=== PATIENT | female | born 1990 | race African-American/Black ===

== ENCOUNTER 2022-10-01 14:02 | Emergency (ER) | payer OTHER ==
[~2022-10-01] VITALS: Ht 149.9 cm; Wt 60.9 kg
[2022-10-01] MEDS ORDERED: PYRI50TA41 PO (14:23)
[2022-10-01] MEDS ORDERED: ISON300T18 PO (14:23)
[2022-10-01] MEDS ORDERED: NAPR220C14 PO (14:23)
[2022-10-01 15:05] LABS: BASO # 0.1 10^3/uL (0.0-0.2); BASO % 1.1 % (0.0-1.0); EOS # 0.2 10^3/uL (0.0-0.5); EOS % 3.1 % (0.0-3.0); HEMATOCRIT 37.7 % (36.0-47.0); HEMOGLOBIN 12.7 g/dl (12.0-15.5); LYMPH # 3.2 10^3/uL (1.5-5.0); LYMPH % 48.9 % (24.0-44.0); MEAN CORPUSCULAR HGB CONC 33.7 g/dl (32.0-36.5); MEAN CORPUSCULAR VOLUME 83.2 fl (80.0-96.0); MONO # 0.4 10^3/uL (0.0-0.8); MONO % 5.4 % (2.0-8.0); NEUTROPHILS # 2.7 10^3/uL (1.5-8.5); NEUTROPHILS % 41.3 % (36.0-66.0); PLATELET COUNT, AUTOMATED 481 10^3/uL (150-450); RED BLOOD COUNT 4.53 10^6/uL (4.00-5.40); WHITE BLOOD COUNT 6.5 10^3/uL (4.0-10.0)
[2022-10-01 15:35] LABS: LIPASE 43 U/L (12-53)
[2022-10-01 15:40] LABS: HCG, SERUM QUALITATIVE NEGATIVE (NEGATIVE)
[2022-10-01 15:41] LABS: ALBUMIN 3.8 G/DL (3.2-5.2); ALKALINE PHOSPHATASE 69 U/L (46-116); ALT/SGPT 16 U/L (7.0-40); AST/SGOT 26 U/L (<34); BILIRUBIN,DIRECT 0.1 MG/DL (<0.4); BILIRUBIN,TOTAL 0.4 MG/DL (0.3-1.2); BLOOD UREA NITROGEN 7 MG/DL (9-23); CALCIUM LEVEL 9.2 MG/DL (8.5-10.1); CARBON DIOXIDE LEVEL 27 MMOL/L (20-31); CHLORIDE LEVEL 108 MMOL/L (98-107); CREATININE FOR GFR 0.86 MG/DL (0.55-1.30); GLOMERULAR FILTRATION RATE > 60.0 (>60); GLUCOSE, FASTING 75 MG/DL (60-100); POTASSIUM SERUM 4.4 MMOL/L (3.5-5.1); SODIUM LEVEL 138 MMOL/L (136-145); TOTAL PROTEIN 7.1 G/DL (5.7-8.2)
[2022-10-01] MEDS ORDERED: NS 1,000 ML IV ONE (17:00)
[2022-10-01] MEDS ORDERED: KETOROLAC 30 MG/ML 1ML VIAL IV ONE (17:05)
[2022-10-01] MEDS ORDERED: IBUP80TA PO (18:55)
[2022-10-01 19:00] VITALS: BP 120/67
== END 2022-10-01 19:08 | disposition home or self-care (01) ==
LOC: M ED 14:02
DX: R10.2 Pelvic and perineal pain (principal); N93.9 Abnormal uterine and vaginal bleeding, unspecified; D25.9 Leiomyoma of uterus, unspecified; Z79.1 Long term (current) use of non-steroidal anti-inflammatories (NSAID); Z79.899 Other long term (current) drug therapy
CPT/HCPCS: 74177; 76856; 80048; 80076; 81001; 83690; 84703; 85025; 93976; 96361; 96374; 99284; J1885

== ENCOUNTER 2022-12-31 06:23 | Inpatient (IN) | payer OTHER ==
[2022-12-31] VITALS (8 sets, daily range): BP systolic 108–130; BP diastolic 57–76; TEMP 97–99.2; O2SAT 97–100
[~2022-12-31] VITALS: Ht 149.9 cm; Wt 59.4 kg
[~2022-12-31 06:23] MED LIST: ACETAMINOPHEN *IV* 1,000 MG IV ONE; IBUP200C25 PO; IBUP80TA PO; ISON300T18 PO; LR 1,000 ML IV SCH; NAPR220C14 PO; PYRI50TA41 PO; ceFAZolin SOD 2 GM in IV 1 EA IV ONE
[2022-12-31 07:02] LABS: HEMATOCRIT 40.3 % (36.0-47.0); HEMOGLOBIN 13.7 g/dl (12.0-15.5); MEAN CORPUSCULAR HEMOGLOBIN 27.9 pg (27.0-33.0); MEAN CORPUSCULAR VOLUME 82.1 fl (80.0-96.0); PLATELET COUNT, AUTOMATED 459 10^3/uL (150-450); RED BLOOD COUNT 4.91 10^6/uL (4.00-5.40); WHITE BLOOD COUNT 5.8 10^3/uL (4.0-10.0)
[2022-12-31] MEDS ORDERED: ACETAMINOPHEN 1000MG 100ML IV BAG As Ordered ONE (07:11)
[2022-12-31] MEDS ORDERED: propofoL 200 MG/20 ML VIAL As Ordered ONE (07:12)
[2022-12-31] MEDS ORDERED: KETOROLAC 60MG 2ML VIAL As Ordered ONE (07:12)
[2022-12-31] MEDS ORDERED: ONDANSETRON 4MG 2ML VIAL As Ordered ONE (07:12)
[2022-12-31] MEDS ORDERED: LIDOCAINE 2% 100MG/5ML SDV (FOR ANES.) As Ordered ONE (07:12)
[2022-12-31] MEDS ORDERED: SUGAMMADEX SODIUM 500 MG/5 ML VIAL (BRIDION) As Ordered ONE (07:12)
[2022-12-31] MEDS ORDERED: ROCURONIUM BROMIDE 50MG/5ML VIAL As Ordered ONE ×3 (07:12→11:30)
[2022-12-31] MEDS ORDERED: MIDAZOLAM INJ 2MG/2ML VIAL As Ordered ONE (07:13)
[2022-12-31] MEDS ORDERED: fentaNYL 100 MCG/2 ML INJECTION As Ordered ONE (07:13)
[2022-12-31] MEDS ORDERED: VASOPRESSIN INJ 20UNITS/ML 1ML VIAL As Ordered ONE (07:30)
[2022-12-31] MEDS ORDERED: HYDROmorphone HCL 2MG/ML 1ML VIAL As Ordered ONE (07:57)
[2022-12-31] MEDS: DOCUSATE SODIUM 100MG CAPSULE PO SCH ×2 (09:00→21:12)
[2022-12-31] MEDS ORDERED: fentaNYL 100 MCG/2 ML INJECTION IV PRN (10:55)
[2022-12-31] MEDS ORDERED: oxyCODONE 5MG TAB PO PRN ×2 (10:55→11:05)
[2022-12-31] MEDS ORDERED: ONDANSETRON 4MG 2ML VIAL IV PRN ×2 (10:55→11:05)
[2022-12-31] MEDS ORDERED: LR 1,000 ML IV SCH (11:05)
[2022-12-31] MEDS ORDERED: PROMETHAZINE 25MG/ML 1ML VIAL IV PRN (11:05)
[2022-12-31] MEDS: HYDROMORPHONE HCL 0.5 MG/ 0.5 ML SYRINGE IV PRN ×2 (11:31→11:37)
[2022-12-31] MEDS: ACETAMINOPHEN 500 MG TAB PO SCH ×2 (14:00→19:24)
[2022-12-31] MEDS: KETOROLAC 30 MG/ML 1ML VIAL IV SCH ×2 (15:20→21:13)
[2022-12-31] MEDS ORDERED: HOME MED LIST COMPLETE! XX SCH (15:50)
[2022-12-31] MEDS ORDERED: SCOPOLAMINE 1MG TRANSDERMAL PATCH TOP PRN (16:00)
[2022-12-31] MEDS: oxyCODONE 5MG TAB PO PRN (19:25)
[2023-01-01] VITALS: BP 107/61; TEMP 98.6; O2SAT 99
[2023-01-01] MEDS: SIMETHICONE 80MG CHEW TAB PO PRN ×2 (00:43→10:30)
[2023-01-01] MEDS: ACETAMINOPHEN 500 MG TAB PO SCH ×2 (02:17→07:50)
[2023-01-01] MEDS: KETOROLAC 30 MG/ML 1ML VIAL IV SCH (03:10)
[2023-01-01 04:00] VITALS: BP 117/66; TEMP 99.8; O2SAT 100
[2023-01-01 06:33] LABS: BASO # 0.1 10^3/uL (0.0-0.2); BASO % 0.5 % (0.0-1.0); EOS # 0.1 10^3/uL (0.0-0.5); HEMATOCRIT 27.7 % (36.0-47.0); HEMOGLOBIN 9.4 g/dl (12.0-15.5); LYMPH # 2.9 10^3/uL (1.5-5.0); LYMPH % 26.8 % (24.0-44.0); MEAN CORPUSCULAR HEMOGLOBIN 28.1 pg (27.0-33.0); MEAN CORPUSCULAR HGB CONC 33.9 g/dl (32.0-36.5); MEAN CORPUSCULAR VOLUME 82.7 fl (80.0-96.0); MONO # 0.7 10^3/uL (0.0-0.8); MONO % 6.8 % (2.0-8.0); NEUTROPHILS % 64.7 % (36.0-66.0); RED BLOOD COUNT 3.35 10^6/uL (4.00-5.40); WHITE BLOOD COUNT 10.8 10^3/uL (4.0-10.0)
[2023-01-01 06:37] LABS: PLATELET COUNT, AUTOMATED 324 10^3/uL (150-450)
[2023-01-01 07:39] VITALS: BP 99/56; TEMP 98.6; O2SAT 98
[2023-01-01] MEDS: DOCUSATE SODIUM 100MG CAPSULE PO SCH (07:50)
[2023-01-01] MEDS: oxyCODONE 5MG TAB PO PRN (07:58)
[2023-01-01] MEDS ORDERED: ACET1TAB55 PO (10:50)
[2023-01-01] MEDS ORDERED: SIME80TA16 PO (10:50)
[2023-01-01] MEDS ORDERED: OXYC-517 PO (10:50)
[2023-01-01] MEDS ORDERED: IBUP80TA PO (10:50)
[2023-01-01] MEDS ORDERED: MIRA3350 PO (10:50)
[2023-01-01] MEDS ORDERED: IBUPROFEN 800 MG TAB PO SCH (11:00)
[2023-01-01 11:45] VITALS: BP 104/56; TEMP 98; O2SAT 100
== END 2023-01-01 12:35 | disposition home or self-care (01) | DRG 743 ==
LOC: M OR 06:23 → EDSTATUS 07:30 → M PED 12:15
PROVIDERS: ADMIT Obstetrics & Gynecology; ATTEND Obstetrics & Gynecology
PROC: 0UB90ZZ Excision of Uterus, Open Approach (ICD-10-PCS; principal; 2022-12-31 07:30)
DX: D25.9 Leiomyoma of uterus, unspecified (principal)

== ENCOUNTER 2023-02-10 12:09 | Emergency (ER) | payer OTHER ==
[~2023-02-10] VITALS: Ht 149.9 cm; Wt 59.5 kg
[~2023-02-10 12:09] MED LIST changes: +ACET1TAB55 PO; -ACETAMINOPHEN *IV* 1,000 MG IV ONE; -LR 1,000 ML IV SCH; +MIRA3350 PO; +OXYC-517 PO; +SIME80TA16 PO; -ceFAZolin SOD 2 GM in IV 1 EA IV ONE
[2023-02-10 14:31] LABS: BASO # 0.1 10^3/uL (0.0-0.2); EOS # 0.1 10^3/uL (0.0-0.5); EOS % 1.8 % (0.0-3.0); HEMATOCRIT 37.3 % (36.0-47.0); HEMOGLOBIN 12.7 g/dl (12.0-15.5); LYMPH # 3.4 10^3/uL (1.5-5.0); LYMPH % 48.1 % (24.0-44.0); MEAN CORPUSCULAR VOLUME 82.3 fl (80.0-96.0); MONO # 0.4 10^3/uL (0.0-0.8); MONO % 5.4 % (2.0-8.0); NEUTROPHILS # 3.1 10^3/uL (1.5-8.5); NEUTROPHILS % 43.6 % (36.0-66.0); PLATELET COUNT, AUTOMATED 490 10^3/uL (150-450); RED BLOOD COUNT 4.53 10^6/uL (4.00-5.40)
[2023-02-10 15:01] LABS: LIPASE 56 U/L (12-53)
[2023-02-10 15:16] LABS: ALKALINE PHOSPHATASE 63 U/L (46-116); ALT/SGPT < 9 U/L (7.0-40); AST/SGOT 21 U/L (<34); BILIRUBIN,DIRECT 0.1 MG/DL (<0.4); BILIRUBIN,TOTAL 0.5 MG/DL (0.3-1.2); BLOOD UREA NITROGEN 6 MG/DL (9-23); CALCIUM LEVEL 8.8 MG/DL (8.5-10.1); CARBON DIOXIDE LEVEL 23 MMOL/L (20-31); CHLORIDE LEVEL 106 MMOL/L (98-107); GLOMERULAR FILTRATION RATE > 60.0 (>60); GLUCOSE, FASTING 82 MG/DL (60-100); POTASSIUM SERUM 5.1 MMOL/L (3.5-5.1); SODIUM LEVEL 139 MMOL/L (136-145); TOTAL PROTEIN 7.7 G/DL (5.7-8.2)
[2023-02-10 15:20] LABS: HCG, SERUM QUALITATIVE NEGATIVE (NEGATIVE)
[2023-02-10] MEDS ORDERED: NS 1,000 ML IV ONE (15:40)
[2023-02-10] MEDS ORDERED: KETOROLAC 30 MG/ML 1ML VIAL IV ONE (15:40)
[2023-02-10] MEDS ORDERED: ONDANSETRON 4MG 2ML VIAL IV ONE (15:40)
[2023-02-10] MEDS ORDERED: ISOVUE-370 76% 100ML VIAL As Ordered ONE (15:45)
[2023-02-10 17:15] VITALS: BP 127/79; TEMP 99.1; O2SAT 100
== END 2023-02-10 17:16 | disposition home or self-care (01) ==
LOC: M ED 12:09
DX: N83.11 Corpus luteum cyst of right ovary (principal); J91.8 Pleural effusion in other conditions classified elsewhere; Z79.1 Long term (current) use of non-steroidal anti-inflammatories (NSAID); Z79.899 Other long term (current) drug therapy
CPT/HCPCS: 74177; 80047; 80053; 81001; 82248; 83605; 83690; 84703; 85025; 87040; 96374; 96375; 99284; J1885; J2405; Q9967

== ENCOUNTER 2023-05-17 22:02 | Emergency (ER) | payer OTHER ==
[~2023-05-17] VITALS: Ht 149.9 cm; Wt 59.0 kg
[~2023-05-17 22:02] MED LIST changes: +ONDA4TAB6 PO
[2023-05-17] MEDS ORDERED: NS 1,000 ML IV ONE (23:05)
[2023-05-17] MEDS ORDERED: KETOROLAC 30 MG/ML 1ML VIAL IM ONE (23:05)
[2023-05-17] MEDS ORDERED: METOCLOPRAMIDE INJ 10MG/2ML VIAL IV ONE (23:05)
[2023-05-18] MEDS ORDERED: ISOVUE-370 76% 100ML VIAL As Ordered ONE (00:30)
[2023-05-18 01:55] VITALS: BP 118/88; TEMP 98.8; O2SAT 100
== END 2023-05-18 01:58 | disposition home or self-care (01) ==
LOC: M ED 22:02 → EDBD 22:02 → M ED 05-18 01:58
DX: R51.9 Headache, unspecified (principal); Q28.2 Arteriovenous malformation of cerebral vessels; V49.40XA Driver injured in collision with unspecified motor vehicles in traffic accident, initial encounter; Y92.410 Unspecified street and highway as the place of occurrence of the external cause; Y93.9 Activity, unspecified; Y99.9 Unspecified external cause status; Z79.83 Long term (current) use of bisphosphonates
CPT/HCPCS: 70450; 70496; 70498; 72125; 80047; 84702; 96361; 96372; 96374; 99284; J1885; J2765; Q9967

== ENCOUNTER 2023-12-21 12:57 | Emergency (ER) | payer OTHER ==
[~2023-12-21] VITALS: Ht 149.9 cm; Wt 59.1 kg
[~2023-12-21 12:57] MED LIST changes: +FERR1TAB8 PO; +ONDA-282 PO; -ONDA4TAB6 PO; +VITA500T4 PO
[2023-12-21] MEDS: ACETAMINOPHEN *IV* 1,000 MG in IV 1 EA IV ONE (14:23)
[2023-12-21] MEDS: NS 1,000 ML IV ONE (14:23)
[2023-12-21 14:43] LABS: BASO # 0.1 10^3/uL (0.0-0.2); BASO % 0.9 % (0.0-1.0); EOS # 0.1 10^3/uL (0.0-0.5); EOS % 1.4 % (0.0-3.0); LYMPH # 2.9 10^3/uL (1.5-5.0); MEAN CORPUSCULAR HEMOGLOBIN 27.8 pg (27.0-33.0); MEAN CORPUSCULAR HGB CONC 34.3 g/dl (32.0-36.5); MONO # 0.3 10^3/uL (0.0-0.8); MONO % 4.5 % (2.0-8.0); NEUTROPHILS # 2.4 10^3/uL (1.5-8.5); PLATELET COUNT, AUTOMATED 425 10^3/uL (150-450); RED BLOOD COUNT 4.32 10^6/uL (4.00-5.40); WHITE BLOOD COUNT 5.6 10^3/uL (4.0-10.0)
[2023-12-21 14:52] LABS: ERYTHROCYTE SEDIMENTATION RATE 6 mm/hr (0-20)
[2023-12-21 15:06] LABS: C REACTIVE PROTEIN QUANTITATIV < 0.40 MG/DL (<1.0)
[2023-12-21 15:08] LABS: BLOOD UREA NITROGEN 10 MG/DL (9-23); CALCIUM LEVEL 8.9 MG/DL (8.5-10.1); CARBON DIOXIDE LEVEL 26 MMOL/L (20-31); CHLORIDE LEVEL 111 MMOL/L (98-107); CREATININE FOR GFR 0.77 MG/DL (0.55-1.30); GLOMERULAR FILTRATION RATE > 60.0 (>60); GLUCOSE, FASTING 89 MG/DL (60-100); MAGNESIUM LEVEL 1.9 MG/DL (1.8-2.4); POTASSIUM SERUM 4.3 MMOL/L (3.5-5.1); SODIUM LEVEL 142 MMOL/L (136-145)
[2023-12-21] MEDS: KETOROLAC 30 MG/ML 1ML VIAL IV ONE (15:16)
[2023-12-21 15:38] LABS: RSV AMPLIFICATION NEGATIVE (NEGATIVE)
[2023-12-21 16:08] VITALS: BP 115/70; TEMP 99.7; O2SAT 100
== END 2023-12-21 16:46 | disposition home or self-care (01) ==
LOC: M ED 12:57
DX: R51.9 Headache, unspecified (principal); Q28.2 Arteriovenous malformation of cerebral vessels; D47.3 Essential (hemorrhagic) thrombocythemia
CPT/HCPCS: 70450; 80048; 83605; 83735; 85025; 85652; 86140; 87040; 87631; 96374; 96375; 99284; J0131; J1885

== ENCOUNTER 2024-03-25 19:08 | Emergency (ER) | payer OTHER ==
[~2024-03-25] VITALS: Ht 152.4 cm; Wt 62.5 kg
[~2024-03-25 19:08] MED LIST changes: +B-2100TA; +MAGN400T33; +RIZA10TA58
[2024-03-25 19:09] VITALS: TEMP 97.1
[2024-03-25 20:29] LABS: BASO # 0.1 10^3/uL (0.0-0.2); BASO % 0.5 % (0.0-1.0); EOS # 0.1 10^3/uL (0.0-0.5); EOS % 0.7 % (0.0-3.0); HEMATOCRIT 36.8 % (36.0-47.0); HEMOGLOBIN 12.7 g/dl (12.0-15.5); LYMPH # 2.6 10^3/uL (1.5-5.0); LYMPH % 22.2 % (24.0-44.0); MEAN CORPUSCULAR HGB CONC 34.5 g/dl (32.0-36.5); MEAN CORPUSCULAR VOLUME 81.1 fl (80.0-96.0); MONO # 0.6 10^3/uL (0.0-0.8); MONO % 5.3 % (2.0-8.0); NEUTROPHILS # 8.5 10^3/uL (1.5-8.5); PLATELET COUNT, AUTOMATED 469 10^3/uL (150-450); RED BLOOD COUNT 4.54 10^6/uL (4.00-5.40); WHITE BLOOD COUNT 11.9 10^3/uL (4.0-10.0)
[2024-03-25 20:55] LABS: ALBUMIN 3.7 G/DL (3.2-5.2); ALKALINE PHOSPHATASE 67 U/L (46-116); ALT/SGPT 16 U/L (7.0-40); AST/SGOT 19 U/L (<34); BILIRUBIN,TOTAL 0.3 MG/DL (0.3-1.2); BLOOD UREA NITROGEN 10 MG/DL (9-23); CALCIUM LEVEL 9.5 MG/DL (8.5-10.1); CARBON DIOXIDE LEVEL 24 MMOL/L (20-31); CHLORIDE LEVEL 112 MMOL/L (98-107); CREATININE FOR GFR 0.81 MG/DL (0.55-1.30); GLOMERULAR FILTRATION RATE > 60.0 (>60); GLUCOSE, FASTING 109 MG/DL (60-100); POTASSIUM SERUM 4.2 MMOL/L (3.5-5.1); SODIUM LEVEL 141 MMOL/L (136-145); TOTAL PROTEIN 7.4 G/DL (5.7-8.2)
[2024-03-25 22:21] LABS: HCG, SERUM QUALITATIVE NEGATIVE (NEGATIVE)
[2024-03-25] MEDS ORDERED: ISOVUE-370 76% 100ML VIAL As Ordered ONE (22:28)
[2024-03-25] MEDS: KETOROLAC 30 MG/ML 1ML VIAL IV ONE (22:33)
[2024-03-26] MEDS ORDERED: MIRA3350 PO (01:03)
[2024-03-26] MEDS ORDERED: ANUS2.5C2 TOP (01:32)
[2024-03-26 01:45] VITALS: BP 125/63; O2SAT 99
== END 2024-03-26 01:48 | disposition home or self-care (01) ==
LOC: M ED 19:08
DX: R10.9 Unspecified abdominal pain (principal); K59.00 Constipation, unspecified; K64.9 Unspecified hemorrhoids; Z79.899 Other long term (current) drug therapy
CPT/HCPCS: 74018; 74177; 80053; 81001; 84703; 85025; 96374; 99283; J1885; Q9967

== ENCOUNTER 2024-09-02 05:58 | Emergency (ER) | payer OTHER ==
[~2024-09-02] VITALS: Ht 152.4 cm; Wt 64.7 kg
[~2024-09-02 05:58] MED LIST changes: +ANUS2.5C2 TOP; +ISON1TAB5 PO; -ISON300T18 PO
[2024-09-02 08:51] LABS: BASO # 0.1 10^3/uL (0.0-0.2); BASO % 1.2 % (0.0-1.0); EOS # 0.1 10^3/uL (0.0-0.5); EOS % 1.6 % (0.0-3.0); HEMATOCRIT 37.1 % (36.0-47.0); HEMOGLOBIN 12.9 g/dl (12.0-15.5); LYMPH # 2.2 10^3/uL (1.5-5.0); LYMPH % 43.7 % (24.0-44.0); MEAN CORPUSCULAR HEMOGLOBIN 27.4 pg (27.0-33.0); MEAN CORPUSCULAR HGB CONC 34.8 g/dl (32.0-36.5); MEAN CORPUSCULAR VOLUME 78.8 fl (80.0-96.0); MONO # 0.3 10^3/uL (0.0-0.8); MONO % 6.2 % (2.0-8.0); NEUTROPHILS # 2.4 10^3/uL (1.5-8.5); NEUTROPHILS % 47.1 % (36.0-66.0); PLATELET COUNT, AUTOMATED 460 10^3/uL (150-450); RED BLOOD COUNT 4.71 10^6/uL (4.00-5.40)
[2024-09-02 09:00] LABS: ERYTHROCYTE SEDIMENTATION RATE 11 mm/hr (0-20)
[2024-09-02 09:16] LABS: LIPASE 30 U/L (12-53)
[2024-09-02 09:18] LABS: ALBUMIN 3.7 G/DL (3.2-5.2); ALKALINE PHOSPHATASE 61 U/L (35-104); ALT/SGPT 11 U/L (7.0-40); AST/SGOT 16 U/L (<34); BILIRUBIN,DIRECT 0.1 MG/DL (<0.4); BILIRUBIN,TOTAL 0.6 MG/DL (0.3-1.2); C REACTIVE PROTEIN QUANTITATIV < 0.50 MG/DL (<1.0); TOTAL PROTEIN 7.4 G/DL (5.7-8.2)
[2024-09-02 11:20] VITALS: BP 116/77; TEMP 96.6; O2SAT 100
== END 2024-09-02 11:25 | disposition home or self-care (01) ==
LOC: M ED 05:58
DX: R51.9 Headache, unspecified (principal); Q28.2 Arteriovenous malformation of cerebral vessels; E78.5 Hyperlipidemia, unspecified; Z22.7 Latent tuberculosis; R10.9 Unspecified abdominal pain; Z79.899 Other long term (current) drug therapy

== ENCOUNTER 2024-10-19 16:54 | Emergency (ER) | payer OTHER ==
[~2024-10-19] VITALS: Ht 152.4 cm; Wt 64.5 kg
[2024-10-19 20:13] LABS: BASO # 0.1 10^3/uL (0.0-0.2); BASO % 0.8 % (0.0-1.0); EOS # 0.2 10^3/uL (0.0-0.5); HEMOGLOBIN 12.8 g/dl (12.0-15.5); LYMPH # 3.2 10^3/uL (1.5-5.0); LYMPH % 49.9 % (24.0-44.0); MEAN CORPUSCULAR HEMOGLOBIN 27.1 pg (27.0-33.0); MEAN CORPUSCULAR HGB CONC 33.7 g/dl (32.0-36.5); MEAN CORPUSCULAR VOLUME 80.3 fl (80.0-96.0); MONO # 0.3 10^3/uL (0.0-0.8); MONO % 5.1 % (2.0-8.0); NEUTROPHILS # 2.6 10^3/uL (1.5-8.5); NEUTROPHILS % 40.9 % (36.0-66.0); PLATELET COUNT, AUTOMATED 541 10^3/uL (150-450); RED BLOOD COUNT 4.73 10^6/uL (4.00-5.40); WHITE BLOOD COUNT 6.4 10^3/uL (4.0-10.0)
[2024-10-19 20:27] LABS: LIPASE 45 U/L (12-53)
[2024-10-19 20:28] LABS: HCG, SERUM QUALITATIVE NEGATIVE (NEGATIVE)
[2024-10-19 20:29] LABS: ALBUMIN 3.8 G/DL (3.2-5.2); ALKALINE PHOSPHATASE 78 U/L (35-104); ALT/SGPT 24 U/L (7.0-40); AST/SGOT 17 U/L (<34); BILIRUBIN,DIRECT 0.1 MG/DL (<0.4); BILIRUBIN,TOTAL 0.4 MG/DL (0.3-1.2); BLOOD UREA NITROGEN 8 MG/DL (9-23); CALCIUM LEVEL 9.3 MG/DL (8.5-10.1); CARBON DIOXIDE LEVEL 25 MMOL/L (20-31); CHLORIDE LEVEL 108 MMOL/L (98-107); GLOMERULAR FILTRATION RATE > 60.0 (>60); GLUCOSE, FASTING 95 MG/DL (60-100); POTASSIUM SERUM 4.3 MMOL/L (3.5-5.1); SODIUM LEVEL 139 MMOL/L (136-145); TOTAL PROTEIN 7.7 G/DL (5.7-8.2)
[2024-10-19] MEDS: KETOROLAC 30 MG/ML 1ML VIAL IV ONE (21:17)
[2024-10-19] MEDS: NS (Normal Saline) 0.9% 1,000 ML IV ONE (21:18)
[2024-10-19] MEDS ORDERED: AMOX500C PO (22:45)
[2024-10-19] MEDS: AMOXICILLIN 500 MG CAP PO ONE (22:54)
[2024-10-19 22:58] VITALS: BP 129/81; TEMP 96.2; O2SAT 100
== END 2024-10-19 22:59 | disposition home or self-care (01) ==
LOC: M ED 16:54
DX: J01.10 Acute frontal sinusitis, unspecified (principal); G43.909 Migraine, unspecified, not intractable, without status migrainosus; D57.3 Sickle-cell trait; Z79.2 Long term (current) use of antibiotics; Z79.899 Other long term (current) drug therapy
CPT/HCPCS: 71045; 80048; 80076; 83690; 84703; 85025; 87040; 87207; 87486; 87581; 87633; 87798; 96361; 96374; 99284; J1885

== ENCOUNTER 2024-11-12 03:02 | Emergency (ER) | payer OTHER ==
[~2024-11-12] VITALS: Ht 152.4 cm; Wt 63.5 kg
[~2024-11-12 03:02] MED LIST changes: +AMOX500C PO
[2024-11-12] MEDS ORDERED: IBUP-1022 PO (03:07)
[2024-11-12 03:32] LABS: BASO # 0.1 10^3/uL (0.0-0.2); EOS # 0.3 10^3/uL (0.0-0.5); EOS % 3.7 % (0.0-3.0); HEMOGLOBIN 12.7 g/dl (12.0-15.5); LYMPH # 3.6 10^3/uL (1.5-5.0); LYMPH % 51.7 % (24.0-44.0); MEAN CORPUSCULAR HEMOGLOBIN 27.3 pg (27.0-33.0); MEAN CORPUSCULAR HGB CONC 34.3 g/dl (32.0-36.5); MEAN CORPUSCULAR VOLUME 79.4 fl (80.0-96.0); MONO # 0.4 10^3/uL (0.0-0.8); MONO % 5.7 % (2.0-8.0); NEUTROPHILS # 2.7 10^3/uL (1.5-8.5); NEUTROPHILS % 37.6 % (36.0-66.0); PLATELET COUNT, AUTOMATED 505 10^3/uL (150-450); RED BLOOD COUNT 4.66 10^6/uL (4.00-5.40)
[2024-11-12 03:57] LABS: LIPASE 34 U/L (12-53)
[2024-11-12 03:59] LABS: ALBUMIN 3.8 G/DL (3.2-5.2); ALKALINE PHOSPHATASE 73 U/L (35-104); ALT/SGPT 20 U/L (7.0-40); AST/SGOT 19 U/L (<34); BILIRUBIN,DIRECT 0.2 MG/DL (<0.4); BILIRUBIN,TOTAL 0.6 MG/DL (0.3-1.2); BLOOD UREA NITROGEN 6 MG/DL (9-23); CALCIUM LEVEL 9.4 MG/DL (8.5-10.1); CARBON DIOXIDE LEVEL 25 MMOL/L (20-31); CHLORIDE LEVEL 108 MMOL/L (98-107); CREATININE FOR GFR 0.84 MG/DL (0.55-1.30); GLOMERULAR FILTRATION RATE > 90.0 (>60); GLUCOSE, FASTING 93 MG/DL (60-100); POTASSIUM SERUM 4.1 MMOL/L (3.5-5.1); SODIUM LEVEL 141 MMOL/L (136-145); TOTAL PROTEIN 7.5 G/DL (5.7-8.2)
[2024-11-12 04:04] LABS: HCG, SERUM QUALITATIVE NEGATIVE (NEGATIVE)
[2024-11-12 05:17] LABS: KETONE, URINE AUTO RFX NEGATIVE (NEGATIVE); LEUKOCYTE ESTERASE UR AUTO RFX NEGATIVE (NEGATIVE); NITRITE, URINE AUTO RFX NEGATIVE (NEGATIVE); RBC, URINE AUTO RFX 9 /HPF (0-3); SQUAM EPITHELIAL CELL UR AURFX 0 /HPF (0-6); WBC, URINE AUTO RFX 1 /HPF (0-3)
[2024-11-12] MEDS: ONDANSETRON 4MG 2ML VIAL IV ONE (07:25)
[2024-11-12] MEDS: KETOROLAC 30 MG/ML 1ML VIAL IV ONE (07:26)
[2024-11-12] MEDS ORDERED: PANT40TA29 PO (09:04)
[2024-11-12] MEDS ORDERED: SUCR1SS PO (09:04)
[2024-11-12 09:20] VITALS: BP 121/68; TEMP 98.8; O2SAT 100
== END 2024-11-12 09:20 | disposition home or self-care (01) ==
LOC: M ED 03:02
DX: K29.70 Gastritis, unspecified, without bleeding (principal); D25.9 Leiomyoma of uterus, unspecified; Z79.1 Long term (current) use of non-steroidal anti-inflammatories (NSAID); Z79.899 Other long term (current) drug therapy
CPT/HCPCS: 74176; 80048; 80076; 81001; 83690; 84703; 85025; 87486; 87581; 87633; 87798; 96374; 96375; 99284; J1885; J2405

== ENCOUNTER → 2025-05-17 | Outpatient (CLI) | payer OTHER ==
[~2025-05-17] MED LIST changes: +FERR325T3 PO; +IBUP600T42 PO; +PANT40TA29 PO; +PROHANCE 279.3MG/ML 15ML VIAL As Ordered ONE; +SUCR1SS PO; +VITA500C24 PO
== END ==
LOC: M RAD 06:53
PROVIDERS: ATTEND Nurse Practitioner Family
DX: Q28.2 Arteriovenous malformation of cerebral vessels (principal)
CPT/HCPCS: 70553; A9576